=== PATIENT | male | born 1940 | race Caucasian/White ===

== ENCOUNTER 2017-03-03 20:45 | Emergency (ER) | payer MEDICARE, OTHER ==
[~2017-03-03] VITALS: Ht 177.8 cm; Wt 76.7 kg
[~2017-03-03 20:45] MED LIST: ASPI-586 PO; ATRV10T PO; DICL100T PO
[2017-03-03 21:13] LABS: BASOPHILS # (AUTO) 0.1 10^3/uL (0.0-0.1); BASOPHILS % (AUTO) 1 % (0-10); EOSINOPHILS # (AUTO) 0.3 10^3/uL (0.0-0.3); EOSINOPHILS % (AUTO) 3 % (0-10); LYMPHOCYTES % (AUTO) 20 % (12-44); MEAN CORPUSCULAR HEMOGLOBIN 33 PG (25-34); MEAN CORPUSCULAR HGB CONC 34 G/DL (32-36); MEAN CORPUSCULAR VOLUME 97 FL (80-99); MEAN PLATELET VOLUME 10.1 FL (7.4-10.4); MONOCYTES # (AUTO) 1.2 X 10^3 (0.0-1.0); MONOCYTES % (AUTO) 12 % (0-12); NEUTROPHILS # (AUTO) 6.5 X 10^3 (1.8-7.8); NEUTROPHILS % (AUTO) 64 % (42-75); PLATELET COUNT 229 10^3/uL (130-400); WHITE BLOOD COUNT 10.1 10^3/uL (4.3-11.0)
--- NOTE | 2017-03-03 21:13 | ED Chest Pain ---
General Chief Complaint: Chest Pain Stated Complaint: TIGHTNESS IN CHEST Nursing Triage Note: c/o sternal chest pain, denies soa, nausea Nursing Sepsis Screen: No Definite Risk Source: patient, spouse History of Present Illness Time seen by provider: 21:00 Initial Comments Patient presents to ER with chief complaint of tightness in his chest across his shoulders for the past 2-1/2 hours after he was swimming. He swims 3 times a week and has never had this problem before. He does not remember injuring himself. He does mild shortness of breath no nausea paresthesias tingling numbness. He has no thyroid or blood pressure problems. He is on a statin for hypercholesterolemia. He has no previous coronary history. He does not smoke or use tobacco products, drink or use drugs. His father had a heart attack in his mid 80s. He is not had any coronary testing, stress testing or workup for aneurysm. Allergies and Home Medications Allergies Coded Allergies: Penicillins (Verified Allergy, Unknown, 07/12/16) clarithromycin (Verified Allergy, Unknown, 07/12/16) Home Medications Aspirin 81 Mg Tablet.dr, 81 MG PO DAILY, (Reported) Atorvastatin Calcium 10 Mg Tablet, 10 MG PO DAILY, (Reported) Diclofenac Sodium 100 Mg Tab.er.24h, 100 MG PO DAILY PRN for arthritis pain, ( Reported) Review of Systems Constitutional: No chills, No diaphoresis, No fever, No malaise EENTM: No Blurred Vision, No Double Vision Respiratory: Denies Cough, Denies Shortness of Air Cardiovascular: See HPI, Chest Pain (tightness), Denies Edema, Denies Irregular Heart Rate, Denies Palpitations, Denies Syncope Gastrointestinal: Denies Abdominal Pain, Denies Diarrhea, Denies Nausea, Denies Vomiting Genitourinary: Denies Burning, Denies Discharge Musculoskeletal: No joint pain, No joint swelling Skin: No pruritus, No rash Psychiatric/Neurological: Denies Headache, Denies Numbness Past Wweftqz-Gcovum-Inurnx Hx Patient Social History Alcohol Use: Denies Use Recreational Drug Use: No Smoking Status: Never a Smoker Recent Foreign Travel: No Contact w/Someone Who Travel: No Recent Infectious Disease Expo: No Recent Hopitalizations: No Immunizations Up To Date Date of Pneumonia Vaccine: May 31, 2016 Date of Influenza Vaccine: May 31, 2016 Seasonal Allergies Seasonal Allergies: No Surgeries HX Surgeries: Yes (melonama removed from face, cyst removed from wrist) Surgeries: Gallbladder Respiratory Hx Respiratory Disorders: No Cardiovascular Hx Cardiac Disorders: No Cardiac Disorders: High Cholesterol Neurological Hx Neurological Disorders: No Genitourinary Hx Genitourinary Disorders: No Gastrointestinal Hx Gastrointestinal Disorders: No Gastrointestinal Disorders: Polyps Musculoskeletal Hx Musculoskeletal Disorders: Yes (MILD ARTHRITIS IN SHOULDERS) Musculoskeletal Disorders: Arthritis, Chronic Back Pain Endocrine Hx Endocrine Disorders: No HEENT HX ENT Disorders: Yes (cataracts removed) Cancer Hx Cancer: Yes Cancer: Melanoma Psychosocial Hx Psychiatric Problems: No Integumentary HX Skin/Integumentary Disorder: Yes (cyst on left wrist) Blood Transfusions Hx Blood Disorders: No Physical Exam Vital Signs Vital Sign - Last 12Hours 03/03/17 20:55 Temp 98.2 Pulse 66 Resp 19 B/P (MAP) 133/80 Pulse Ox 98 O2 Delivery Room Air Capillary Refill : Less Than 3 Seconds General Appearance: No Apparent Distress, WD/WN, Anxious HEENT: PERRL/EOMI, Pharynx Normal Respiratory: Chest Non Tender, Lungs Clear, Normal Breath Sounds, No Accessory Muscle Use Cardiovascular: Regular Rate, Rhythm, No Edema Gastrointestinal: Normal Bowel Sounds, Non Tender, Soft Extremity: Normal Capillary Refill, Normal Inspection, No Pedal Edema Neurologic/Psychiatric: Alert, Oriented x3 Skin: Normal Color, Warm/Dry Progress/Results/Core Measures Results/Orders Lab Results Laboratory Tests Test 03/03/17 21:00 03/03/17 23:05 Range/Units White Blood Count 10.1 4.3-11.0 10^3/uL Red Blood Count 4.20 L 4.35-5.85 10^6/uL Hemoglobin 13.8 13.3-17.7 G/DL Hematocrit 41 40-54 % Mean Corpuscular Volume 97 80-99 FL Mean Corpuscular Hemoglobin 33 25-34 PG Mean Corpuscular Hemoglobin Concent 34 32-36 G/DL Red Cell Distribution Width 12.0 10.0-14.5 % Platelet Count 229 130-400 10^3/uL Mean Platelet Volume 10.1 7.4-10.4 FL Neutrophils (%) (Auto) 64 42-75 % Lymphocytes (%) (Auto) 20 12-44 % Monocytes (%) (Auto) 12 0-12 % Eosinophils (%) (Auto) 3 0-10 % Basophils (%) (Auto) 1 0-10 % Neutrophils # (Auto) 6.5 1.8-7.8 X 10^3 Lymphocytes # (Auto) 2.0 1.0-4.0 X 10^3 Monocytes # (Auto) 1.2 H 0.0-1.0 X 10^3 Eosinophils # (Auto) 0.3 0.0-0.3 10^3/uL Basophils # (Auto) 0.1 0.0-0.1 10^3/uL Prothrombin Time 13.0 12.2-14.7 SEC INR Comment 1.0 0.8-1.4 Activated Partial Thromboplast Time 31 24-35 SEC Sodium Level 139 135-145 MMOL/L Potassium Level 4.3 3.6-5.0 MMOL/L Chloride Level 105 98-107 MMOL/L Carbon Dioxide Level 20 L 21-32 MMOL/L Anion Gap 14 5-14 MMOL/L Blood Urea Nitrogen 17 7-18 MG/DL Creatinine 0.83 0.60-1.30 MG/DL Estimat Glomerular Filtration Rate > 60 BUN/Creatinine Ratio 20 Glucose Level 93 70-105 MG/DL Calcium Level 9.1 8.5-10.1 MG/DL Magnesium Level 2.5 H 1.8-2.4 MG/DL Total Bilirubin 0.4 0.1-1.0 MG/DL Aspartate Amino Transf (AST/SGOT) 27 5-34 U/L Alanine Aminotransferase (ALT/SGPT) 20 0-55 U/L Alkaline Phosphatase 52 40-136 U/L Myoglobin 101.4 H 10.0-92.0 NG/ML Troponin I < 0.30 < 0.30 <0.30 NG/ML Total Protein 6.4 6.4-8.2 GM/DL Albumin 3.9 3.2-4.5 GM/DL My Orders Orders - CHUYITA ROGERS Troponin I (03/03/17 23:08) Medications Given in ED Current Medications Medications Dose Ordered Sig/Camila Route Start Time Stop Time Status Last Admin Dose Admin Aspirin 324 mg ONCE ONCE PO 03/03/17 21:15 03/03/17 21:16 DC 03/03/17 21:27 324 MG Vital Signs/I&O Vital Sign - Last 12Hours 03/03/17 03/03/17 20:55 20:55 Temp 98.2 Pulse 66 Resp 19 B/P (MAP) 133/80 Pulse Ox 98 O2 Delivery Room Air Blood Pressure Mean: 97 Progress Note #1: Time: 21:58 Progress Note Muscular skeletal versus cardiac origin. EKG unremarkable and so we'll get some lab and a chest x-ray. Progress Note #2: Time: 00:19 Progress Note Delta T was both normal okay to follow-up with Dr. Helms next week. ECG Initial ECG Impression Date: Mar 03, 2017 Initial ECG Impression Time: 20:56 Initial ECG Rate: 64 Initial ECG Rhythm: Normal Sinus Initial ECG Intervals: Normal Initial ECG Impression: Nonspecific Changes Initial ECG Comparisson: No Previous ECG Available Comment No ST wave elevation or depression Diagnostic Imaging Diagonstic Imaging: Xray Plain Films/CT/US/NM/MRI: chest Comments NAME: KANWAL ALBARRAN MED REC#: [id number] PHYSICIAN: ELIZABETH DARDEN APRN CC: ELIZABETH DARDEN APRN; LEORA RAM MD Page 1 of 1 RADIOLOGY REPORT [facility]. [place], [place] CC: ELIZABETH DARDEN APRN; LEORA RAM MD Page 1 of 1 RADIOLOGY REPORT NAME: KANWAL ALBARRAN MED REC#: [id number] PT STATUS: REG ER : 1940 PHYSICIAN: ELIZABETH DARDEN APRN ADMIT DATE: 03/03/17/ER Signed Date of Exam: 03/03/17 CHEST 1 VIEW, AP/PA ONLY INDICATION: Chest tightness Upright portable chest shows normal heart size and vascularity. The lungs are clear. There is no effusion or pneumothorax. There is no bony abnormality. IMPRESSION: Normal chest. Dictated by: Dictated on workstation # [id number] Dict: 03/03/172126 Trans: 03/03/172151 Interpreted by: LEORA RAM MD Electronically signed by: LEORA RAM MD 03/03/172151 Reviewed: Reviewed by Me Departure Impression Impression: Primary Impression: Chest pain Qualified Codes: R07.9 - Chest pain, unspecified Disposition: 01 HOME, SELF-CARE Condition: Stable Departure-Patient Inst. Decision time for Depature: 00:20 Referrals: JACK HELMS MD (PCP) Primary Care Physician Patient Instructions: Chest Pain That Is Not Caused by the Heart (DC) Add. Discharge Instructions: Plan on following up Monday by calling Dr. Helms's office to be seen within the next week. Return to the ER if you're having new chest pain nausea shortness of breath or other worrisome symptoms. All discharge instructions reviewed with patient and/or family. Voiced understanding. Copy Copies To 1: JACK HELMS MD, TITUS J Mar 03, 2017 21:13
[2017-03-03] MEDS: ASPIRIN 81 MG CHEW (CHILDREN'S ASA) PO ONE (21:27)
--- NOTE | 2017-03-03 21:33 | Diagnostic Imaging Report ---
INDICATION: Chest tightness Upright portable chest shows normal heart size and vascularity. The lungs are clear. There is no effusion or pneumothorax. There is no bony abnormality. IMPRESSION: Normal chest. Dictated by: Dictated on workstation # [id number]
[2017-03-03 21:34] LABS: ALANINE AMINOTRANSFERASE 20 U/L (0-55); ALBUMIN 3.9 GM/DL (3.2-4.5); ANION GAP 14 MMOL/L (5-14); ASPARTATE AMINO TRANSFERASE 27 U/L (5-34); BILIRUBIN,TOTAL 0.4 MG/DL (0.1-1.0); BLOOD UREA NITROGEN 17 MG/DL (7-18); BUN/CREATININE RATIO 20; CALCIUM 9.1 MG/DL (8.5-10.1); CARBON DIOXIDE 20 MMOL/L (21-32); CHLORIDE 105 MMOL/L (98-107); CREATININE SERUM 0.83 MG/DL (0.60-1.30); GFR ESTIMATED > 60; GLUCOSE 93 MG/DL (70-105); MAGNESIUM 2.5 MG/DL (1.8-2.4); POTASSIUM 4.3 MMOL/L (3.6-5.0); SODIUM 139 MMOL/L (135-145); TOTAL PROTEIN 6.4 GM/DL (6.4-8.2)
[2017-03-03 21:35] LABS: MYOGLOBIN SERUM 101.4 NG/ML (10.0-92.0)
[2017-03-04 00:26] VITALS: BP 103/60
== END 2017-03-04 00:30 | disposition home or self-care (01) ==
LOC: EDUNIT# 20:45 → ER 20:46
DX: R07.89 Other chest pain (principal); M19.011 Primary osteoarthritis, right shoulder; M19.012 Primary osteoarthritis, left shoulder; E78.00 Pure hypercholesterolemia, unspecified; Z85.820 Personal history of malignant melanoma of skin; Z79.82 Long term (current) use of aspirin
CPT/HCPCS: 36415; 71010; 80053; 83735; 83874; 84484; 85025; 85027; 85610; 85730; 93041

== ENCOUNTER 2017-07-04 10:54 | Emergency (ER) | payer MEDICARE, OTHER ==
[~2017-07-04] VITALS: Ht 172.7 cm; Wt 79.4 kg
--- OUTSIDE RECORDS SUMMARY | 2017-07-04 11:00 | XMS REPORT ---
Author IMANI Angeles Organization [employer] Address Unknown Phone Unavailable Care Team Providers Care Labor Relations Representative Name Role Phone IMANI CAMPBELL CP Unavailable Allergies No Known Allergies Problems Problem Type Condition Code Onset Dates Condition Status Assessment Encounter for immunization Z23 Active Problem Need for prophylactic vaccination and inoculation, Influenza V04.81 Active Medications No Known Medications Procedures Procedure Coding System Code Date SINGLE IMMUNIZATION ADMIN CPT-4 44043 May 28, 2016 PPV23 (PNEUMOVAX) CPT-4 71512 May 28, 2016 Results No Known Results Immunizations Vaccine Administration Date PPV23 (PNEUMOVAX) May 28, 2016 FLUARIX QUAD P-FREE 3 AND UP .50 2015May 28, 2016 Summary Purpose [employer] Submission
--- OUTSIDE RECORDS SUMMARY | 2017-07-04 11:00 | XMS REPORT | Continuity of Care Document ---
Author Author [facility] Address Unknown Phone Unavailable Allergies Medications Problems Date Dx Coded Attending Type Code Diagnosis Diagnosed By 10/03/2008 IMANI CAMPBELL DO V05.8 GARDASIL, SHINGLES, OTHER SPECIFIED DISEASE 05/21/2013 IMANI CAMPBELL DO V04.81 FLU SHOT Procedures Code Description Performed By Performed On G0008 FLU ADMINISTRATION (MEDICARE ONLY) 05/21/2013 Results Encounters ACCT No. Visit Date/Time Discharge Status Pt. Type Provider Facility Loc./Unit Complaint [id number] 05/21/2013 14:18:00 05/21/2013 23: 59:59 CLS Outpatient IMANI CAMPBELL DO
[2017-07-04 11:17] LABS: BASOPHILS # (AUTO) 0.1 10^3/uL (0.0-0.1); BASOPHILS % (AUTO) 1 % (0-10); EOSINOPHILS # (AUTO) 0.2 10^3/uL (0.0-0.3); EOSINOPHILS % (AUTO) 4 % (0-10); LYMPHOCYTES # (AUTO) 1.6 X 10^3 (1.0-4.0); LYMPHOCYTES % (AUTO) 25 % (12-44); MEAN CORPUSCULAR HEMOGLOBIN 33 PG (25-34); MEAN CORPUSCULAR HGB CONC 34 G/DL (32-36); MEAN CORPUSCULAR VOLUME 96 FL (80-99); MEAN PLATELET VOLUME 9.9 FL (7.4-10.4); MONOCYTES # (AUTO) 0.9 X 10^3 (0.0-1.0); MONOCYTES % (AUTO) 14 % (0-12); NEUTROPHILS # (AUTO) 3.6 X 10^3 (1.8-7.8); NEUTROPHILS % (AUTO) 56 % (42-75); PLATELET COUNT 218 10^3/uL (130-400); RED BLOOD COUNT 4.37 10^6/uL (4.35-5.85); RED CELL DISTRIBUTION WIDTH 11.8 % (10.0-14.5); WHITE BLOOD COUNT 6.4 10^3/uL (4.3-11.0)
[2017-07-04] MEDS ORDERED: NS IV 500 ML 500 ML IV ONE (11:27)
--- NOTE | 2017-07-04 11:28 | ED General ---
General Chief Complaint: Dizziness/Syncope Stated Complaint: LIGHT-HEADED,DIZZY,LOW PULSE RATE Source of Information: Patient Exam Limitations: No Limitations History of Present Illness Time Seen by Provider: 11:20 Initial Comments Here from his primary care doctor's office with report of dizziness and a heart rate. His primary care doctor was concerned about the low heart rate. Patient admits that he has had 2 days of diarrhea and was quite severe last night. Also complains of some fullness in his ears. Denies nausea or vomiting and states the diarrhea has stopped now. Denies chest pain or weakness. Normally swims about three quarters of a mile a day and was off for about a week and started back up. He reports he was a little bit more short of breath than typical with that although he was have an diarrheal illness. Timing/Duration: 1-2 Days Severity: Mild Associated Systoms: No Chest Pain, No Cough, No Fever/Chills, No Nausea/ Vomiting, Shortness of Air, Other (dizziness) Allergies and Home Medications Allergies Coded Allergies: Penicillins (Verified Allergy, Unknown, 07/12/16) clarithromycin (Verified Allergy, Unknown, 07/12/16) Home Medications Aspirin 81 Mg Tablet.dr, 81 MG PO DAILY, (Reported) Atorvastatin Calcium 10 Mg Tablet, 10 MG PO DAILY, (Reported) Diclofenac Sodium 100 Mg Tab.er.24h, 100 MG PO DAILY PRN for arthritis pain, ( Reported) Constitutional: see HPI, No chills, No fever (6636) EENTM: see HPI, nose congestion Respiratory: see HPI Cardiovascular: no symptoms reported Gastrointestinal: see HPI, No abdominal pain, diarrhea, No nausea, No vomiting Genitourinary: no symptoms reported Skin: no symptoms reported Psychiatric/Neurological: See HPI, Other (dizziness) Hematologic/Lymphatic: No Symptoms Reported All Other Systems Reviewed Negative Unless Noted: Yes Past Zdeqvjw-Cggjbq-Pqptes Hx Patient Social History Alcohol Use: Occasionally Uses Number of Drinks Today: HH Alcohol Beverage of Choice: Wine Recreational Drug Use: No Smoking Status: Never a Smoker Recent Foreign Travel: No Contact w/Someone Who Travel: No Recent Hopitalizations: No Immunizations Up To Date Date of Pneumonia Vaccine: May 31, 2016 Date of Influenza Vaccine: May 31, 2016 Seasonal Allergies Seasonal Allergies: No Surgeries History of Surgeries: Yes (melonama removed from face, cyst removed from wrist) Surgeries: Gallbladder Respiratory History of Respiratory Disorde: No Cardiovascular History of Cardiac Disorders: Yes Cardiac Disorders: High Cholesterol Neurological History of Neurological Disord: No Gastrointestinal History of Gastrointestinal Di: No Gastrointestinal Disorders: Polyps Musculoskeletal History of Musculoskeletal Dis: Yes (MILD ARTHRITIS IN SHOULDERS) Musculoskeletal Disorders: Arthritis, Chronic Back Pain Endocrine History of Endocrine Disorders: No Cancer History of Cancer: Yes Cancer: Melanoma Psychosocial History of Psychiatric Problem: No Integumentary History of Skin or Integumenta: Yes (cyst on left wrist) Blood Transfusions History of Blood Disorders: No Reviewed Nursing Assessment Reviewed/Agree w Nursing PMH: Yes Family Medical History Significant Family History: No Pertinent Family Hx Physical Exam Vital Signs Vital Sign - Last 12Hours 07/04/17 10:54 Temp 97.4 Pulse 45 Resp 18 B/P (MAP) 164/77 (106) Capillary Refill : General Appearance: No Apparent Distress, WD/WN HEENT: PERRL/EOMI, Pharynx Normal Neck: Non Tender, Supple Respiratory: Lungs Clear, Normal Breath Sounds Cardiovascular: No Murmur, Bradycardia Gastrointestinal: Non Tender, Soft Back: Normal Inspection, No CVA Tenderness, No Vertebral Tenderness Extremity: Normal Range of Motion, Non Tender Neurologic/Psychiatric: Alert, Oriented x3 Skin: Normal Color, Warm/Dry Progress/Results/Core Measures Suspected Sepsis SIRS Temperature: Pulse: Respiratory Rate: Laboratory Tests 07/04/17 11:05: White Blood Count 6.4 Blood Pressure / Mean: Laboratory Tests 07/04/17 11:05: Creatinine 0.88, Platelet Count 218, Total Bilirubin 0.6 Results/Orders Lab Results Laboratory Tests Test 07/04/17 11:05 07/04/17 12:11 Range/Units White Blood Count 6.4 4.3-11.0 10^3/uL Red Blood Count 4.37 4.35-5.85 10^6/uL Hemoglobin 14.5 13.3-17.7 G/DL Hematocrit 42 40-54 % Mean Corpuscular Volume 96 80-99 FL Mean Corpuscular Hemoglobin 33 25-34 PG Mean Corpuscular Hemoglobin Concent 34 32-36 G/DL Red Cell Distribution Width 11.8 10.0-14.5 % Platelet Count 218 130-400 10^3/uL Mean Platelet Volume 9.9 7.4-10.4 FL Neutrophils (%) (Auto) 56 42-75 % Lymphocytes (%) (Auto) 25 12-44 % Monocytes (%) (Auto) 14 H 0-12 % Eosinophils (%) (Auto) 4 0-10 % Basophils (%) (Auto) 1 0-10 % Neutrophils # (Auto) 3.6 1.8-7.8 X 10^3 Lymphocytes # (Auto) 1.6 1.0-4.0 X 10^3 Monocytes # (Auto) 0.9 0.0-1.0 X 10^3 Eosinophils # (Auto) 0.2 0.0-0.3 10^3/uL Basophils # (Auto) 0.1 0.0-0.1 10^3/uL Sodium Level 139 135-145 MMOL/L Potassium Level 4.5 3.6-5.0 MMOL/L Chloride Level 102 98-107 MMOL/L Carbon Dioxide Level 30 21-32 MMOL/L Anion Gap 7 5-14 MMOL/L Blood Urea Nitrogen 23 H 7-18 MG/DL Creatinine 0.88 0.60-1.30 MG/DL Estimat Glomerular Filtration Rate > 60 BUN/Creatinine Ratio 26 Glucose Level 72 70-105 MG/DL Calcium Level 9.7 8.5-10.1 MG/DL Magnesium Level 2.2 1.8-2.4 MG/DL Total Bilirubin 0.6 0.1-1.0 MG/DL Aspartate Amino Transf (AST/SGOT) 31 5-34 U/L Alanine Aminotransferase (ALT/SGPT) 29 0-55 U/L Alkaline Phosphatase 48 40-136 U/L Troponin I < 0.30 <0.30 NG/ML Total Protein 7.3 6.4-8.2 GM/DL Albumin 4.2 3.2-4.5 GM/DL Thyroid Stimulating Hormone (TSH) 3.59 0.35-4.94 UIU/ML Urine Color YELLOW Urine Clarity CLEAR Urine pH 7 5-9 Urine Specific [place] 1.005 L 1.016-1.022 Urine Protein NEGATIVE NEGATIVE Urine Glucose (UA) NEGATIVE NEGATIVE Urine Ketones NEGATIVE NEGATIVE Urine Nitrite NEGATIVE NEGATIVE Urine Bilirubin NEGATIVE NEGATIVE Urine Urobilinogen NORMAL NORMAL MG/DL Urine Leukocyte Esterase NEGATIVE NEGATIVE Urine RBC (Auto) NEGATIVE NEGATIVE Urine RBC NONE /HPF Urine WBC NONE /HPF Urine Squamous Epithelial Cells NONE /HPF Urine Crystals NONE /LPF Urine Bacteria NEGATIVE /HPF Urine Casts NONE /LPF Urine Mucus NEGATIVE /LPF Urine Culture Indicated NO My Orders Orders - ESPERANZA VALDERRAMA MD Cbc With Automated Diff (07/04/17 11:08) Comprehensive Metabolic Panel (07/04/17 11:08) Magnesium (07/04/17 11:08) Thyroid Stimulating Hormone (07/04/17 11:08) Troponin I (07/04/17 11:08) Saline Lock/Iv-Start (07/04/17 11:08) Ekg Tracing (07/04/17 11:08) Monitor-Rhythm Ecg Trace Only (07/04/17 11:08) Chest Pa/Lat (2 View) (07/04/17 11:08) Ns Iv 500 Ml (Sodium Chloride 0.9%) (07/04/17 11:27) Ua Culture If Indicated (07/04/17 12:05) Medications Given in ED Current Medications Medications Dose Ordered Sig/Camila Route Start Time Stop Time Status Last Admin Dose Admin Sodium Chloride 500 ml @ 0 mls/hr Q0M ONCE IV 07/04/17 11:27 07/04/17 11:28 DC 07/04/17 12:12 500 MLS/HR Vital Signs/I&O Vital Sign - Last 12Hours 07/04/17 10:54 Temp 97.4 Pulse 45 Resp 18 B/P (MAP) 164/77 (106) Capillary Refill : Progress Note : Progress Note Seen and evaluated. IV, labs, normal saline 500 mL bolus, chest x-ray and EKG ordered. We will get UA for some complaints of low back pain. 1335: Labs and UA are reviewed and no significant findings. Discharged home with return precautions. Patient verbalize understanding instructions and agreement with plan. He will follow up with Dr. Helms and cardiology as needed. ECG Initial ECG Impression Date: Jul 04, 2017 Initial ECG Impression Time: 11:10 Initial ECG Rate: 46 Initial ECG Rhythm: S.Sd Comment Sinus bradycardia with right bundle branch block. No evidence of ST elevation [place]. Overall similar to previous of 03/03/17. Interpreted by me. Diagnostic Imaging Diagonstic Imaging: Xray Plain Films/CT/US/NM/MRI: chest Comments [facility] [place] [place] NAME: KANWAL ALBARRAN [facility] REC#: [id number] PT STATUS: REG ER : 1940 PHYSICIAN: ESPERANZA VALDERRAMA MD ADMIT DATE: 07/04/17/ER Draft Date of Exam:07/04/17 CHEST PA/LAT (2 VIEW) EXAMINATION: PA and lateral views of the chest. INDICATION: Dizziness and lightheadedness. FINDINGS: The lungs are clear. The heart size is normal. There is no effusion or pneumothorax. The mediastinum and nilesh appear unremarkable. IMPRESSION: Unremarkable exam. Dictated on workstation # [id number] Dict: 07/04/17 1144 Trans: 07/04/17 1149 [id number] Interpreted by: SHANA BANUELOS MD Electronically signed by: Departure Impression Impression: Primary Impression: Dizziness Additional Impressions: Diarrhea Qualified Codes: R19.7 - Diarrhea, unspecified Bradycardia Disposition: 01 HOME, SELF-CARE Condition: Improved Departure-Patient Inst. Decision time for Depature: 13:37 Referrals: JACK HELMS MD (PCP) Primary Care Physician Doron LEDBETTER MD Patient Instructions: Dizziness, Nonvertigo, (DC), Viral Upper Respiratory Infection, Adult (DC) Add. Discharge Instructions: All discharge instructions reviewed with patient and/or family. Voiced understanding. Drink plenty fluids and eat a normal diet. Follow-up with your Dr. in a few days for recheck. You should follow-up with the director of direct marketing listed or director of direct marketing of your choice within a week for recheck and further evaluation. You may use Afrin nasal spray or the generic, 12 hour relief, 2 sprays to each nostril twice daily for 3 days only and then stop. Do not use for more than 3 days. Return for worse pain, fever, vomiting, weakness, breathing problems or other concerns as needed. Copy Copies To 1: JACK HELMS MD Copies To 2: Doron LEDBETTER MD, TIMOTHY D MD Jul 04, 2017 11:27
[2017-07-04 11:37] LABS: ALANINE AMINOTRANSFERASE 29 U/L (0-55); ALBUMIN 4.2 GM/DL (3.2-4.5); ANION GAP 7 MMOL/L (5-14); ASPARTATE AMINO TRANSFERASE 31 U/L (5-34); BILIRUBIN,TOTAL 0.6 MG/DL (0.1-1.0); BLOOD UREA NITROGEN 23 MG/DL (7-18); BUN/CREATININE RATIO 26; CALCIUM 9.7 MG/DL (8.5-10.1); CARBON DIOXIDE 30 MMOL/L (21-32); CHLORIDE 102 MMOL/L (98-107); CREATININE SERUM 0.88 MG/DL (0.60-1.30); GFR ESTIMATED > 60; GLUCOSE 72 MG/DL (70-105); MAGNESIUM 2.2 MG/DL (1.8-2.4); POTASSIUM 4.5 MMOL/L (3.6-5.0); SODIUM 139 MMOL/L (135-145); TOTAL PROTEIN 7.3 GM/DL (6.4-8.2)
--- NOTE | 2017-07-04 11:50 | Diagnostic Imaging Report ---
EXAMINATION: PA and lateral views of the chest. INDICATION: Dizziness and lightheadedness. FINDINGS: The lungs are clear. The heart size is normal. There is no effusion or pneumothorax. The mediastinum and nilesh appear unremarkable. IMPRESSION: Unremarkable exam. Dictated by: Dictated on workstation # [id number]
[2017-07-04 12:00] LABS: THYROID STIMULATING HORMONE 3.59 UIU/ML (0.35-4.94); TROPONIN I < 0.30 NG/ML (<0.30)
[2017-07-04 12:18] LABS: BILIRUBIN,URINE NEGATIVE (NEGATIVE); KETONES,URINE NEGATIVE (NEGATIVE); LEUKOCYTE ESTERASE ,URINE NEGATIVE (NEGATIVE); NITRITE,URINE NEGATIVE (NEGATIVE); PH,URINE 7 (5-9); PROTEIN,URINE NEGATIVE (NEGATIVE); UROBILINOGEN,URINE NORMAL (NORMAL)
[2017-07-04 13:51] VITALS: BP 166/83
== END 2017-07-04 13:52 | disposition home or self-care (01) ==
LOC: EDUNIT# 10:54 → ER 10:56
DX: R42 Dizziness and giddiness (principal); R19.7 Diarrhea, unspecified; R00.1 Bradycardia, unspecified; E78.00 Pure hypercholesterolemia, unspecified; M19.011 Primary osteoarthritis, right shoulder; M19.012 Primary osteoarthritis, left shoulder; Z86.010 Personal history of colon polyps; Z85.820 Personal history of malignant melanoma of skin
CPT/HCPCS: 36415; 71020; 80053; 81000; 83735; 84443; 84484; 85025; 93041

== ENCOUNTER 2017-07-18 08:16 | Outpatient (RCR) | payer MEDICARE, OTHER | END 2017-10-16 | disposition home or self-care (01) | LOC: CARD 08:16 | PROVIDERS: ATTEND Internal Medicine Interventional Cardiology | DX: E78.5 Hyperlipidemia, unspecified (principal); R42 Dizziness and giddiness; I45.10 Unspecified right bundle-branch block; R06.02 Shortness of breath; R00.1 Bradycardia, unspecified | CPT/HCPCS: 93225; 93226 ==

== ENCOUNTER 2017-08-14 08:25 | Outpatient (RCR) | payer MEDICARE, OTHER | END 2017-10-18 | disposition home or self-care (01) | LOC: CARD 08:25 | PROVIDERS: ATTEND Internal Medicine Interventional Cardiology | DX: R42 Dizziness and giddiness (principal); E78.5 Hyperlipidemia, unspecified; I45.10 Unspecified right bundle-branch block; R06.02 Shortness of breath; R00.1 Bradycardia, unspecified | CPT/HCPCS: 93270 ==

== ENCOUNTER → 2017-08-14 | Outpatient (CLI) | payer MEDICARE, OTHER | LOC: CARD 09:26 | PROVIDERS: ATTEND Internal Medicine Interventional Cardiology | DX: R42 Dizziness and giddiness (principal); E78.5 Hyperlipidemia, unspecified; I45.10 Unspecified right bundle-branch block; R06.02 Shortness of breath; R00.1 Bradycardia, unspecified | CPT/HCPCS: 93306 ==

== ENCOUNTER → 2017-09-27 | Outpatient (CLI) | payer MEDICARE, OTHER ==
--- NOTE | 2017-09-27 16:51 | Diagnostic Imaging Report ---
INDICATION: Recent injury. Pain. COMPARISON: None. FINDINGS: Three radiographic views of the left hand were obtained. There is no radiographic evidence of acute fracture or dislocation. Moderate scattered degenerative changes are noted, particularly involving the first carpometacarpal joint space as well as the distal interphalangeal joints. Otherwise, joint spaces are preserved. No unexpected radiopaque foreign bodies are seen. Soft tissue structures are unremarkable. IMPRESSION: 1. No acute fracture or dislocation of the left hand. 2. 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 Dictated by: Dictated on workstation # [id number]
== END ==
LOC: RAD 15:33
PROVIDERS: ATTEND Family Medicine
DX: S69.92XA Unspecified injury of left wrist, hand and finger(s), initial encounter (principal); M19.042 Primary osteoarthritis, left hand
CPT/HCPCS: 73130

== ENCOUNTER 2018-03-01 07:57 | Day surgery (SDC) | payer MEDICARE, OTHER ==
[~2018-03-01] VITALS: Ht 175.3 cm; Wt 79.8 kg
[2018-03-01] VITALS (13 sets, daily range): BP systolic 104–148; BP diastolic 65–88
[2018-03-01] MEDS ORDERED: NS IV 1000 ML 1,000 ML ONE (08:14)
[2018-03-01] MEDS ORDERED: LIDOCAINE 1% INJ 20 ML 20 ML VIAL ONE (08:14)
[2018-03-01] MEDS ORDERED: HEParin (CATH LAB) 1,000 ML IV ONE (08:14)
[2018-03-01] MEDS ORDERED: NS IV 1000 ML 1,000 ML IV ONE (08:18)
[2018-03-01] MEDS ORDERED: VANCOMYCIN INJECTION 1,000 MG in NS (IVPB) 250 ML IV ONE (08:30)
[2018-03-01] MEDS ORDERED: BACITRACIN INJECTION 50,000 UNIT, SODIUM CHLORIDE 0.9% IRRIGATIO 500 ML IR ONE ×2 (08:30)
[2018-03-01 08:50] LABS: HEMOGLOBIN 13.8 G/DL (13.3-17.7); MEAN PLATELET VOLUME 9.9 FL (7.4-10.4); RED BLOOD COUNT 4.13 10^6/uL (4.35-5.85); RED CELL DISTRIBUTION WIDTH 12.3 % (10.0-14.5); WHITE BLOOD COUNT 6.4 10^3/uL (4.3-11.0)
[2018-03-01] MEDS ORDERED: MULT-35 PO (09:03)
[2018-03-01] MEDS ORDERED: DICL75TA2 PO (09:03)
[2018-03-01] MEDS ORDERED: ATOR10TA66 PO (09:03)
[2018-03-01] MEDS ORDERED: VITA1TAB17 PO (09:03)
[2018-03-01] MEDS ORDERED: CHOL10007 PO (09:04)
[2018-03-01] MEDS ORDERED: CYAN10006 PO (09:04)
[2018-03-01 09:10] LABS: ALANINE AMINOTRANSFERASE 22 U/L (0-55); ALBUMIN 3.9 GM/DL (3.2-4.5); ALKALINE PHOSPHATASE 51 U/L (40-136); BILIRUBIN,TOTAL 0.5 MG/DL (0.1-1.0); BUN/CREATININE RATIO 25; CALCIUM 9.3 MG/DL (8.5-10.1); CARBON DIOXIDE 27 MMOL/L (21-32); CHLORIDE 107 MMOL/L (98-107); CREATININE SERUM 0.89 MG/DL (0.60-1.30); GFR ESTIMATED > 60; GLUCOSE 93 MG/DL (70-105); POTASSIUM 4.5 MMOL/L (3.6-5.0); SODIUM 140 MMOL/L (135-145); TOTAL PROTEIN 6.3 GM/DL (6.4-8.2)
[2018-03-01 09:17] LABS: PROTHROMBIN TIME PATIENT 13.6 SEC (12.2-14.7)
[2018-03-01] MEDS ORDERED: fentaNYL INJECTION 100 MCG/2 ML AMP ONE ×2 (09:27→10:15)
[2018-03-01] MEDS ORDERED: MIDAZOLAM 5 MG/5 ML (VERSED) VIAL ONE ×2 (09:27→10:15)
[2018-03-01] MEDS ORDERED: NORMAL SALINE 250 ML ONE (09:47)
[2018-03-01] MEDS ORDERED: VANCOMYCIN 1000 MG/VIAL ONE (09:47)
[2018-03-01] MEDS ORDERED: NEO/POLY/BAC (NEOSPORIN) OINT 15 GM TUBE ONE (11:10)
[2018-03-01] MEDS ORDERED: NS IV 1000 ML 1,000 ML IV SCH (11:28)
[2018-03-01] MEDS ORDERED: PATIENT MAY USE OWN MEDS, ALL PO SCH (11:30)
--- NOTE | 2018-03-01 11:31 | Cardiac Procedure Note-CS/ASA ---
Pre-Procedure Note Pre-Op Procedure Note H&P Reviewed The H&P was reviewed, patient examined and no changes noted. Date H&P Reviewed: Mar 01, 2018 Time H&P Reviewed: 09:30 Conscious Sedation Pre-Proced Time Reviewed: 09:30 ASA Class: 3 Airway Mallampati Classification: ([place] appropriate class) I. II. III, IV Lungs Heart ASA score ASA 1: a normal healthy patient ASA 2: a patient with a mild systemic disease (mid diabetes, controlled hypertension, obesity ASA 3: a patient with a severe systemic disease that limits activity (angina , COPD, prior Myocardial infarction) ASA 4: a patient with an incapacitating disease that is a constant threat to life (CHF, renal failure) ASA 5: a moribund patient not expected to survive 24 hrs. (ruptured aneurysm) ASA 6: a declared brain patient whose organs are being harvested. For emergent operations, add the letter E after the classification Grade 1 Sedation Plan: Analgesia, Amnesia, Plan communicated to team members, Discussed options with patient/fam, Discussed risks with patient/fam Note The patient is an appropriate candidate to undergo the planned procedure, sedation, and anesthesia. The patient immediately re-assessed prior to indication. Doron LEDBETTER MD Mar 01, 2018 11:31 am
--- NOTE | 2018-03-01 11:35 | Permanent Pacemaker Implant ---
Dual Chamber Pacemaker Implant PROCEDURE PHYSICIAN: Jadiel Brown MD DUAL CHAMBER PACEMAKER IMPLANTATION: DATE OF PROCEDURE: 03/01/18 INDICATION: Symptomatic sinus node dysfunction. PREOPERATIVE DIAGNOSIS: Symptomatic sinus node dysfunction. POSTOPERATIVE DIAGNOSIS: Dual-chamber permanent pacemaker placed. HISTORY: This is a 77-year-old gentleman with chronotropic incompetence and severe symptomatic sinus node dysfunction with significant symptoms with bradycardia. Dual-chamber permanent pacemaker was recommended. PROCEDURE PERFORMED: 1. Dual-chamber permanent pacemaker implantation. 2. Fluoroscopy. 3. Central venous access. ANESTHESIA: Local anesthesia, conscious sedation. COMPLICATIONS: None. ESTIMATED BLOOD LOSS:20 mL. SPECIMENS: None. ORAL ANTICOAGULATION: None. FLUOROSCOPY TIME: 8 minutes. FLUOROSCOPY DOSE: 62 MGY. CONTRAST DOSE: 0. PROCEDURE DETAILS: The patient is a 77 male and after all of the patients questions were answered, the patient was brought to the EP Lab. The patient's left chest was prepped and draped in sterile fashion. A 2 inch horizontal incision was made 1 cm below the clavicle and dissection carried down to the pectoralis fascia. Using the modified Seldinger technique and under fluoroscopy guidance, the anterior aspect of the left axillary vein was accessed 2 times. The J wires were secured to the drapes with a mosquito clamp. A 6-Iranian sheath was introduced over one of the J-wires. The RV lead was then inserted. The RV lead was directed across the tricuspid valve to the apical septal portion of the right ventricle. The position was checked in MALTESE and STEWART views. The screw was deployed and the lead connected to the edi programmer analyst. Close sensing and pacing thresholds were obtained. Diaphragmatic pacing was ruled out. The lead was secured with 2-0 silk ties to the underlying muscle and fascia. Next, a 6-Iranian sheath was introduced through the remaining J-wire. An atrial lead was then introduced and guided to the level of the right appendage. The screw was deployed and the lead was connected to the interrogator. Good sensing and pacing thresholds were obtained. Diaphragmatic pacing was ruled out. The leads were secured with 2-0 silk ties to the underlying muscle and fascia. The leads were connected to the device in a hermetic fashion. The device and leads were placed in the pocket. Aggressive irrigation with saline solution was done. The device was secured to the underlying muscle and fascia with a 2-0 silk tie. interrogation of the device revealed good integrity of all the leads and good connections. The wound was then closed using 2 layers. The first layer was interrupted 2-0 absorbable Vicryl suture. The last layer was a single subcuticular layer with 4- 0 Vicryl suture. Half inch Steri-Strips and a small dressing were then applied to the wound. The patient tolerated the procedure well and was returned to the recovery room in stable condition with stable vital signs. DEVICE INFORMATION: Edora 8 DR-T [employer], reference number 250869, serial number [id number], PID 60. RA LEAD: Solia S 53, [employer], reference number 544651, serial number [id number]. RV LEAD: Solia S 60, [employer], reference number [id number], serial number [id number]. PER-OPERATIVE DEVICE INTERROGATION: RA sensing 8.6 mV, impedance 490 ohms, threshold 1.3 V at 0.5 ms. RV sensing 10.1 mV, impedance 656 ohms, threshold 1.4 towards at 0.5 ms. IMMEDIATE POSTOPERATIVE DEVICE INTERROGATION: RA sensing 4.9 mV, impedance 487 ohms, threshold 0.8 towards at 0.4 ms. RV sensing 7.5 mV, impedance 877 ohms, threshold 0.6 V at 0.4 ms. PLAN: The patient transferred to the ICU. We will continue with two more doses of IV antibiotics. We will check a chest x-ray and interrogate the device in the morning. The patient will continue on oral antibiotics for 5 days. Jadiel Brown MD, RS, CCDS Cardiac Electrophysiology Doron BROWN MD Mar 01, 2018 11:35 am
[2018-03-01] MEDS ORDERED: CLIN300C11 PO (11:37)
--- NOTE | 2018-03-01 11:38 | Discharge Inst-Post Device ---
Discharge Inst-Post Device Follow up/Plan Dr Brown in one week Heart Healthy Diet Do not lift arm on side of device placement above head for 4 weeks. Do not push and pull heavy objects for 4 weeks. Activity as tolerated. Leave dressing on until follow up at the office. Doron BROWN MD Mar 01, 2018 11:38 am
--- NOTE | 2018-03-01 11:44 | Diagnostic Imaging Report ---
Indication: Arrhythmia Portable chest 12:28 PM There is a left subclavian dual-chamber pacemaker with leads projecting over the right atrium and right ventricle. Heart size and pulmonary vascularity are normal. Lungs are clear. There are no effusions or pneumothoraces. Impression: No acute abnormalities in the chest. Dictated by: Dictated on workstation # [id number]
--- NOTE | 2018-03-01 19:30 | Diagnostic Imaging Report ---
CHEST 1 VIEW, AP/PA ONLY Indication: Status post pacemaker placement. Comparison: 03/01/2018 at 12:28 PM Findings: No focal airspace disease in the visualized lungs. Please note that the posterior lower lobes are poorly evaluated by portable radiography. No pleural effusion or pneumothorax. Stable cardiomegaly with left pectoral transvenous pacemaker. Impression: No pneumothorax post pacemaker placement. Dictated by: Dictated on workstation # [id number]
[2018-03-01] MEDS: VANCOMYCIN INJECTION 1,000 MG in NS (IVPB) 250 ML IV SCH (20:06)
[2018-03-01] MEDS ORDERED: DOCUSATE SODIUM 100 MG (COLACE) CAP PO ONE (22:33)
[2018-03-01] MEDS: DOCUSATE SODIUM 100 MG (COLACE) CAP PO SCH (22:46)
[2018-03-02] VITALS: BP 133/74
[2018-03-02 03:39] LABS: HEMOGLOBIN 13.9 G/DL (13.3-17.7); MEAN PLATELET VOLUME 9.9 FL (7.4-10.4); RED BLOOD COUNT 4.08 10^6/uL (4.35-5.85); WHITE BLOOD COUNT 9.4 10^3/uL (4.3-11.0)
[2018-03-02 04:00] VITALS: BP 124/72
[2018-03-02 04:03] LABS: ALANINE AMINOTRANSFERASE 23 U/L (0-55); ALBUMIN 3.7 GM/DL (3.2-4.5); ALKALINE PHOSPHATASE 48 U/L (40-136); BILIRUBIN,TOTAL 0.7 MG/DL (0.1-1.0); BUN/CREATININE RATIO 18; CALCIUM 8.9 MG/DL (8.5-10.1); CARBON DIOXIDE 24 MMOL/L (21-32); CHLORIDE 108 MMOL/L (98-107); CREATININE SERUM 0.77 MG/DL (0.60-1.30); GFR ESTIMATED > 60; GLUCOSE 94 MG/DL (70-105); POTASSIUM 4.1 MMOL/L (3.6-5.0); SODIUM 139 MMOL/L (135-145); TOTAL PROTEIN 5.8 GM/DL (6.4-8.2)
[2018-03-02 07:46] VITALS: BP 121/69
[2018-03-02] MEDS: DOCUSATE SODIUM 100 MG (COLACE) CAP PO SCH (07:59)
[2018-03-02] MEDS: VANCOMYCIN INJECTION 1,000 MG in NS (IVPB) 250 ML IV SCH (08:01)
[2018-03-02 10:25] VITALS: BP 129/72
[2018-03-02 10:40] VITALS: BP 129/72
--- NOTE | 2018-03-02 11:07 | Cardiology Discharge Summary ---
Diagnosis/Chief Complaint Date of Admission 03/01/2018 Date of Discharge 03/02/2018 Admission Diagnosis Severe symptomatic sinus node dysfunction Final/Discharge Diagnosis Dual chamber PPM implantation Chief Complaint/HPI Chief Complaint/HPI This is a 77 year old gentleman with history of severe symptomatic sinus node dysfunction. Dual chamber PPM is recommended. Discharge Summary Procedures Dual Chamber PPM implanted Discharge Physical Examination normal Hospital Course Unremarkable Pending Labs Laboratory Tests 03/02/18 03:31: White Blood Count 9.4, Red Blood Count 4.08, Hemoglobin 13.9, Hematocrit 39, Mean Corpuscular Volume 96, Mean Corpuscular Hemoglobin 34, Mean Corpuscular Hemoglobin Concent 36, Red Cell Distribution Width 12.0, Platelet Count 193, Mean Platelet Volume 9.9, Sodium Level 139, Potassium Level 4.1, Chloride Level 108, Carbon Dioxide Level 24, Anion Gap 7, Blood Urea Nitrogen 14, Creatinine 0.77, Estimat Glomerular Filtration Rate > 60, BUN/Creatinine Ratio 18, Glucose Level 94, Calcium Level 8.9, Total Bilirubin 0.7, Aspartate Amino Transf (AST/ SGOT) 25, Alanine Aminotransferase (ALT/SGPT) 23, Alkaline Phosphatase 48, Total Protein 5.8, Albumin 3.7 Discussion & Recommendations Discussion Follow up with Dr Brown in one to two weeks. Follow up appt.: Dr Brown Dicharge Diet: Cardiac Diet Activity as Tolerated: Yes Home Medications Reviewed patient Home Medication Reconciliation performed by pharmacy medication reconciliations fire protection equipment technician and/or nursing. Patients Allergies have been reviewed. Discharge Home Medications: Reviewed and agree with Discharge Medication list on patient's Discharge Instruction sheet Condition at discharge stable Instructions to patient/family Dr Brown in one week Doron BROWN MD Mar 02, 2018 11:06 am
[2018-03-02] MEDS ORDERED: TROUGH ORDER-PHARMACY XX NR (20:00)
== END 2018-03-02 10:40 | disposition home or self-care (01) ==
LOC: CATH 07:57 → ICU 12:06 → CATH 03-02 10:40
PROVIDERS: ATTEND Internal Medicine Interventional Cardiology
DX: I49.5 Sick sinus syndrome (principal); E78.5 Hyperlipidemia, unspecified; Z87.891 Personal history of nicotine dependence; Z79.82 Long term (current) use of aspirin
CPT/HCPCS: 33208; 36415; 71045; 80053; 85027; 85610; 85730; 87081; 93005

== ENCOUNTER → 2019-01-03 | Day surgery (SDC) | payer MEDICARE, OTHER ==
[~2019-01-03] VITALS: Ht 176.5 cm; Wt 78.9 kg
[~2019-01-03] MED LIST changes: +ATOR10TA66 PO; +CHOL10007 PO; +CLIN300C11 PO; +CLOP75TA28 PO; +CYAN10006 PO; +DICL75TA2 PO; +LIDOCAINE 1% INJ 20 ML 20 ML VIAL ONE; +METO-370 PO; +METO-387 PO; +MULT-35 PO; +PANT40VI14 IV; +VITA1TAB17 PO
[2019-01-03 12:23] VITALS: BP 133/79
--- NOTE | 2019-01-03 13:18 | NUR ---
loop aborted, spoke with Leonard Sal from [employer] and interrogation reviewed. ambulatory on dc.
== END | disposition home or self-care (01) ==
LOC: CATH 11:36
PROVIDERS: ATTEND Internal Medicine Cardiovascular Disease
DX: R00.2 Palpitations (principal); Z53.9 Procedure and treatment not carried out, unspecified reason

== ENCOUNTER → 2019-02-08 | Outpatient (CLI) | payer MEDICARE, OTHER ==
[~2019-02-08] MED LIST changes: -LIDOCAINE 1% INJ 20 ML 20 ML VIAL ONE
--- NOTE | 2019-02-08 14:52 | Diagnostic Imaging Report ---
PROCEDURE: US carotid duplex, bilateral. TECHNIQUE: Multiple real-time grayscale images were obtained over the carotid arteries in various projections, bilaterally. Additional spectral analysis and color Doppler duplex images were also obtained. INDICATION: Cerebrovascular disease. FINDINGS: Mild plaquing in the proximal internal carotid arteries bilaterally is noted. Velocities appear to be normal bilaterally. No velocity elevation or stenosis is seen. Both vertebral arteries show antegrade flow. IMPRESSION: No evidence of a hemodynamically significant stenosis. Parameters based on the consensus panel Wade-Scale and Doppler ultrasound criteria published May 2003, Radiology, Volume 229. DOPPLER (peak systolic velocity M/S Right Left CCA .85 .80 ICA Proximal .75 .70 ICA Mid .73 .53 ICA Distal .95 .87 RATIO 1.1 1.6 ECA .78 .82 VERT .49 .59 Dictated by: Dictated on workstation # [id number]
== END ==
LOC: RAD 10:21
PROVIDERS: ATTEND Family Medicine
DX: I67.89 Other cerebrovascular disease (principal); E78.2 Mixed hyperlipidemia
CPT/HCPCS: 93880

== ENCOUNTER → 2019-09-20 | Outpatient (CLI) | payer MEDICARE, OTHER ==
[~2019-09-20] MED LIST changes: +CYAN-41 PO; -CYAN10006 PO; -DICL100T PO; -METO-370 PO; -METO-387 PO; +METO50TA7 PO; +MTP25TSR PO; +NF-DICLOTA PO
--- NOTE | 2019-09-20 16:15 | Diagnostic Imaging Report ---
INDICATION: Left wrist pain. Right wrist radiographs done for comparison. COMPARISON: None available. TECHNIQUE: Four views of each wrist were obtained for a total of eight views. FINDINGS: Left wrist: No acute or healing fracture. Large lucent cystic lesion in the distal pole of the scaphoid has not changed since the left hand radiograph of 09/19/2017. Severe degenerative changes at the STT articulation are stable. 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 Cystic change within the triquetrum are similar in appearance as well. Soft tissue surgical clips at the radial aspect are unchanged. Right wrist: No acute or healing fracture. No cystic change within the proximal carpal row. Moderate degenerative changes at the thumb CMC. There are also moderate degenerative changes at the STT. IMPRESSION: 1. Advanced degenerative changes of the left thumb base. 2. Multifocal cystic change within the proximal carpal row on the left is similar to hand radiograph of 09/27/2017, and is most likely degenerative in nature. Dictated by: Dictated on workstation # [id number]
== END ==
LOC: RAD 10:12
PROVIDERS: ATTEND Plastic Surgery
DX: M19.042 Primary osteoarthritis, left hand (principal); M85.642 Other cyst of bone, left hand

== ENCOUNTER → 2020-03-16 | Outpatient (CLI) | payer MEDICARE, OTHER | LOC: CARD 08:23 | PROVIDERS: ATTEND Internal Medicine Interventional Cardiology | DX: I25.10 Atherosclerotic heart disease of native coronary artery without angina pectoris (principal); I34.0 Nonrheumatic mitral (valve) insufficiency; E78.5 Hyperlipidemia, unspecified; I45.10 Unspecified right bundle-branch block; I49.5 Sick sinus syndrome; Z95.0 Presence of cardiac pacemaker | CPT/HCPCS: 93306 ==

== ENCOUNTER → 2021-01-05 | Outpatient (CLI) | payer MEDICARE, OTHER ==
[~2021-01-05] MED LIST changes: -CLIN300C11 PO; +CLIN300C12 PO
--- NOTE | 2021-01-05 13:30 | Diagnostic Imaging Report ---
CLINICAL HISTORY: Neck pain. History of melanoma. COMPARISON: None. TECHNIQUE: Three views of the cervical spine. FINDINGS: There is no acute fracture or dislocation of the cervical spine. There is left convexity curvature of the cervical spine. Views of the dens demonstrate no evidence of fracture. Advanced degenerative changes are seen in the cervical spine with disc height loss, marginal osteophytes, and uncovertebral arthropathy. These appear most prominent at the C3-C4 and C5-C6 levels. The soft tissues of the neck are unremarkable. The included lung apices are clear. IMPRESSION: 1. No acute fracture or dislocation in the cervical spine. 2. Advanced degenerative changes in the cervical spine, most prominent at the C3-C4 and C4-C5 levels. Dictated by: Dictated on workstation # [id number]
--- NOTE | 2021-01-05 16:48 | Diagnostic Imaging Report ---
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 The degenerative changes do seem to have progressed somewhat since the prior chest exam of 07/04/2017. There is no fracture or acute bony abnormality identified. There is no sign of a paraspinal mass. In the interval since the prior study a left-sided pacemaker has been inserted. IMPRESSION: 1. There is no evidence for an acute bony abnormality. 2. The degenerative disc and bony disease involving the lower thoracic spine does seem to have progressed slightly since the prior exam. 3. There has been interval insertion of a left-sided pacemaker. Dictated by: Dictated on workstation # [id number]
--- NOTE | 2021-01-05 16:52 | Diagnostic Imaging Report ---
EXAMINATION: Right shoulder at 1233 PM INDICATION: Shoulder pain 3 views were obtained. There are no prior studies available for comparison. There is no fracture, dislocation or acute bony abnormality identified. There is mild degenerative disease of the glenohumeral joint and at least moderate degenerative disease of the acromioclavicular joint. The soft tissues are unremarkable. IMPRESSION: There is no evidence for an acute bony abnormality. Dictated by: Dictated on workstation # [id number]
== END ==
LOC: RAD 12:02
PROVIDERS: ATTEND Family Medicine
DX: M47.812 Spondylosis without myelopathy or radiculopathy, cervical region (principal); M51.34 Other intervertebral disc degeneration, thoracic region
CPT/HCPCS: 72040; 72072; 73030

== ENCOUNTER → 2021-01-26 | Outpatient (CLI) | payer MEDICARE, OTHER ==
[~2021-01-26] MED LIST changes: +CATHETER FLUSH 10 ML SYR IV PRN; +REGADENOSON 0.4 MG/5 ML SYR (LEXISCAN) IV ONE
[2021-01-26 09:28] VITALS: BP 146/87
--- NOTE | 2021-01-26 22:32 | STRESS TEST ---
DATE OF SERVICE: 01/26/2021 RESTING AND POST REGADENOSON TECHNETIUM-99M TETROFOSMIN SPECT CT IMAGING ORDERING PHYSICIAN: Dr. Hammond. PRIMARY PHYSICIAN: Dr. Kendrick. CLINICAL DIAGNOSIS: Coronary artery disease. Baseline images were carried out after injection of 10.93 mCi of technetium-99m Tetrofosmin. This was followed by 0.4 mg regadenoson and 30.1 mCi of technetium-99m Tetrofosmin for stress imaging. The electrocardiogram showed sinus rhythm at baseline. It did not change significantly with regadenoson infusion. Nonspecific T-wave inversion is seen. There is right bundle-branch block. The patient noted some shortness of breath and mild nausea following regadenoson infusion, which resolved in a few minutes. Review of images at rest and following stress does not indicate any significant perfusion defects consistent with significant myocardial ischemia or infarction. Gated images show normal global left ventricular systolic function with normal regional wall motion. Left ventricular ejection fraction is calculated to be 61%. Left ventricular end diastolic volume is 59 mL. TID is absent (0.95). CONCLUSIONS: 1. No evidence of any significant myocardial ischemia or infarction on this study. 2. Normal regional wall motion. 3. Normal global left ventricular systolic function with a calculated ejection fraction of 61%. Job ID: [id number] DocumentID: [id number] Dictated Date: 01/26/2021 20:22:34 Assembly Cleaner Date: 01/26/2021 22:30:46 Dictated By: BHARATI HAMMOND MD, MA, FACP, FACC,
== END ==
LOC: CARD 08:30
PROVIDERS: ATTEND Internal Medicine Cardiovascular Disease
DX: I25.10 Atherosclerotic heart disease of native coronary artery without angina pectoris (principal)
CPT/HCPCS: 78452; 93017; A9502

== ENCOUNTER 2021-03-05 09:38 | Outpatient (CLI) | payer MEDICARE, OTHER ==
[~2021-03-05 09:38] MED LIST changes: -CATHETER FLUSH 10 ML SYR IV PRN; -REGADENOSON 0.4 MG/5 ML SYR (LEXISCAN) IV ONE
== END 2021-03-05 10:00 ==
LOC: SLEEP 09:38
PROVIDERS: ATTEND Nurse Practitioner
DX: G47.33 Obstructive sleep apnea (adult) (pediatric) (principal); G47.10 Hypersomnia, unspecified; Z86.79 Personal history of other diseases of the circulatory system
CPT/HCPCS: G0399

== ENCOUNTER 2021-04-15 13:00 | Outpatient (RCR) | payer MEDICARE, OTHER | END 2021-04-19 | disposition home or self-care (01) | PROVIDERS: ATTEND Family Medicine | DX: M54.2 Cervicalgia (principal); M54.6 Pain in thoracic spine; M25.511 Pain in right shoulder; Z95.0 Presence of cardiac pacemaker ==

== ENCOUNTER → 2021-04-21 | Outpatient (CLI) | payer MEDICARE, OTHER | LOC: LABNPT 08:21 | PROVIDERS: ATTEND Otolaryngology Otolaryngology/Facial Plastic Surgery | DX: G47.33 Obstructive sleep apnea (adult) (pediatric) (principal); Z20.822 Contact with and (suspected) exposure to COVID-19 | CPT/HCPCS: 87635 ==

== ENCOUNTER 2021-04-23 19:32 | Outpatient (CLI) | payer MEDICARE, OTHER | END 2021-04-24 06:35 | disposition home or self-care (01) | LOC: SLEEP 19:32 | PROVIDERS: ATTEND Nurse Practitioner | DX: G47.33 Obstructive sleep apnea (adult) (pediatric) (principal); G47.31 Primary central sleep apnea | CPT/HCPCS: 95811 ==

== ENCOUNTER → 2021-07-15 | Outpatient (CLI) | payer MEDICARE, OTHER ==
[~2021-07-15] MED LIST changes: +CLIN-144 PO; -CLIN300C12 PO
== END ==
LOC: LABNPT 08:29
PROVIDERS: ATTEND Family Medicine
DX: Z20.822 Contact with and (suspected) exposure to COVID-19 (principal)
CPT/HCPCS: 87636

== ENCOUNTER → 2021-09-15 | Outpatient (CLI) | payer MEDICARE, OTHER ==
--- NOTE | 2021-09-15 15:22 | Diagnostic Imaging Report ---
PROCEDURE: US Thyroid. TECHNIQUE: Multiple Real-time grayscale images were obtained of the thyroid in various projections. INDICATION: Thyroid nodule. COMPARISON: None available. FINDINGS: Right thyroid lobe: The right thyroid lobe measures 4.6 x 1.4 x 1.7 cm. It demonstrates mild heterogeneous echogenicity without discrete nodule. Normal vascularity is present throughout the right thyroid lobe. Isthmus: The thyroid isthmus measures 0.3 cm and is without nodule. Left thyroid lobe: The left thyroid lobe measures 4.9 x 2.1 x 2.2 cm. There is a solid, isoechoic nodule with circumscribed margins that is wider than tall measuring 1.7 x 1.6 x 2.2 cm. IMPRESSION: Solitary left thyroid nodule is mildly suspicious. At its current size, recommendation is for a followup thyroid ultrasound in 12 months to assess stability. ACR TI-RADS: TR3 . TI-RADS Recommendations:TR3 - Mildly Suspicious. FNA if > 2.5 cm. Follow if > 1.5 cm at 1, 3, 5 years. Dictated by: Dictated on workstation # [id number]
== END ==
LOC: RAD 11:03
PROVIDERS: ATTEND Family Medicine
DX: E04.1 Nontoxic single thyroid nodule (principal)
CPT/HCPCS: 76536

== ENCOUNTER 2021-11-02 10:00 | Day surgery (SDC) | payer MEDICARE, OTHER ==
[~2021-11-02] VITALS: Ht 177.8 cm; Wt 85.6 kg
[2021-11-02] VITALS (10 sets, daily range): BP systolic 116–134; BP diastolic 71–89
[2021-11-02 08:39] LABS: HEMATOCRIT 43 % (40-54); HEMOGLOBIN 14.3 g/dL (13.3-17.7); MEAN CORPUSCULAR HEMOGLOBIN 33 pg (25-34); MEAN CORPUSCULAR HGB CONC 34 g/dL (32-36); MEAN CORPUSCULAR VOLUME 97 fL (80-99); MEAN PLATELET VOLUME 9.3 fL (9.0-12.2); PLATELET COUNT 233 10^3/uL (130-400); WHITE BLOOD COUNT 6.4 10^3/uL (4.3-11.0)
[2021-11-02 08:52] LABS: POTASSIUM 4.3 MMOL/L (3.6-5.0)
[2021-11-02 08:53] LABS: ALBUMIN 4.1 GM/DL (3.2-4.5)
[2021-11-02 08:54] LABS: CALCIUM 9.1 MG/DL (8.5-10.1); PROTHROMBIN TIME PATIENT 13.3 SEC (12.2-14.7)
[2021-11-02 08:55] LABS: TOTAL PROTEIN 6.9 GM/DL (6.4-8.2)
[2021-11-02 08:57] LABS: BILIRUBIN,TOTAL 0.4 MG/DL (0.1-1.0)
[2021-11-02 08:59] LABS: CREATININE SERUM 0.82 MG/DL (0.60-1.30)
[~2021-11-02 10:00] MED LIST changes: +APIX5TAB PO; +ASPI-999 PO; +HEParin (CATH LAB) 2,000 ML IV ONE; +LIDOCAINE 1% INJ 50 ML (XYLOCAINE) VIAL ONE; +MIDAZOLAM 5 MG/5 ML (VERSED) VIAL ONE; +MULT-1136 PO; +NF-VITD400 PO; +NS IV 1000 ML 1,000 ML IV SCH; +NS IV 1000 ML 1,000 ML ONE; +POLY1DRO OU; +VITA-189 PO; +diphenhydrAMINE 50 MG/ML INJ (BENADRYL) ONE; +fentaNYL INJ 100 MCG/2 ML AMP ONE; +methylPREDNISolone 125 MG (Solu-MEDROL) VIAL ONE
--- NOTE | 2021-11-02 10:22 | Cardiac Procedure Note-CS/ASA ---
Pre-Procedure Note Pre-Op Procedure Note H&P Reviewed The H&P was reviewed, patient examined and no changes noted. Date H&P Reviewed: Nov 02, 2021 Time H&P Reviewed: 09:45 Conscious Sedation Pre-Proced Time 09:45 ASA Score 3 For ASA 3 and 4: Consider anesthesia and medical clearance. Also, for patients with a history of failed moderate sedation consider anesthesia. Airway Lungs Heart ASA score ASA 1: a normal healthy patient ASA 2: a patient with a mild systemic disease (mid diabetes, controlled hypertension, obesity ASA 3: a patient with a severe systemic disease that limits activity (angina, COPD, prior Myocardial infarction) ASA 4: a patient with an incapacitating disease that is a constant threat to life (CHF, renal failure) ASA 5: a moribund patient not expected to survive 24 hrs. (ruptured aneurysm) ASA 6: a declared brain- patient whose organs are being harvested. For emergent operations, add the letter E after the classification Mallampati Classification Grade 2 Sedation Plan Analgesia, Amnesia, Plan communicated to team members, Discussed options with patient/fam, Discussed risks with patient/fam The patient is an appropriate candidate to undergo the planned procedure, sedation, and anesthesia. The patient immediately re-assessed prior to indication. BHARATI BURNETTE MD FACP FAC CCDS Nov 02, 2021 10:22
--- NOTE | 2021-11-02 10:24 | Discharge Inst-Cardiology ---
Discharge Inst-Cardiac Discharge Medications Continued Medications: Apixaban (Eliquis) 5 Mg Tablet 5 MG PO BID, TAB Aspirin (Aspirin) 81 Mg Tab.chew 81 MG PO DAILY, TAB Atorvastatin Calcium (Atorvastatin Calcium) 10 Mg Tablet 10 MG PO HS, TAB Metoprolol Succinate (Metoprolol Succinate) 50 Mg Tab.er.24h 50 MG PO DAILY, TAB Multivitamin (Multivitamin) 1 Each Tablet 1 EACH PO DAILY, TAB Polyvinyl Alcohol/Povidone/Pf (Refresh Classic Eye Drops) 1 Each Droperette 1 DROP OU HS PRN for DRY EYES, DROP Vitamin B Complex (B Complex) 1 Each Tablet 1 EACH PO DAILY, TAB Vitamin D (Vitamin D3) 10 Mcg Tablet 400 MCG PO MON,WED,MON, TAB BHARATI BURNETTE MD FACP FAC CCDS Nov 02, 2021 10:24
--- NOTE | 2021-11-02 10:25 | Discharge Inst-Post CATH ---
Discharge Inst-CATH/EP Post Cardiac Cath/EP D/C Inst Follow Up/Plan F/u with Dr Hammond in 2 weeks ACTIVITY * Go Home directly and rest. * Limit activity of the leg (or wrist if it was used) for 7 days including aerobics, swimming, jogging, bicycling, etc. * Restrict stair-climbing for 7 days if possible, if not, climb up with your n on-cath leg, then bring together on the same step. * Avoid lifting, pushing, pulling or excessive movement of the affected ex tremity for 7 days. * Customary sexual activity may be resumed after 2 days-use caution not to use a position that strains or causes pain to the affected extremity. * No driving for 24 hours. * NO SMOKING. * Avoid straining for bowel movements for 7 days. * Gentle walking on level ground is allowed. * Returning to work will depend on the type of procedure and the results. Your doctor will discuss this with you. CALL YOUR DOCTOR FOR ANY OF THE FOLLOWING: *If bleeding from the puncture site occurs- Apply gentle pressure to site with clean cloth and call your doctor or EMS. * If a knot or lump forms under the skin, increases in size, or causes pain. * If bruising appears to be worsening or moving further down your leg instead of disappearing. * Temperature above 101 F. CARE OF YOUR GROIN INCISION; * Bruising or purple discoloration of the skin near the puncture site is common. * You may shower only, no bathtub bathing for 5 days. Be careful to avoid slipping as your leg may feel stiff. * If a closure device was used on your femoral artery, please see the attached guide regarding care of the device and your leg. * Leave dressing on FOR 24 hours. CARE OF YOUR WRIST INCISION; * Bruising or purple discoloration of the skin near the puncture site is common. * You may shower. * DO NOT submerge wrist. * Leave dressing on FOR 24 hours. BHARATI HAMMOND MD FACP FAC CCDS Nov 02, 2021 10:25
[2021-11-02] MEDS ORDERED: PATIENT MAY USE OWN MEDS, ALL PO SCH (10:30)
[2021-11-02] MEDS ORDERED: NS IV 1000 ML 1,000 ML IV SCH (10:30)
--- NOTE | 2021-11-02 10:45 | CARDIAC CATHETERIZATION ---
DATE OF SERVICE: 11/02/2021 CARDIAC CATHETERIZATION REPORT INDICATION FOR PROCEDURE: The patient is an 80-year-old gentleman with a known history of coronary artery disease. He has lately been having chest discomfort that is suggestive of previous angina. Cardiac catheterization was carried out today after having obtained an informed consent. DESCRIPTION OF PROCEDURE: He was brought to the cardiac catheterization laboratory in a fasting state. Right groin was prepared and draped in the usual sterile fashion. Lidocaine 1% was used as local anesthesia. Modified Seldinger technique used to advance a 5-Iranian sheath in the right femoral artery. We used a 5-Iranian JL4 catheter for left coronary angiography and 5-Iranian JR4 catheter for right coronary angiography. We used a 5-Iranian pigtail catheter to carry out left heart catheterization and left ventricular angiography. At the end of the procedure, we used Mynx to achieve hemostasis following sheath removal. He tolerated the procedure well. HEMODYNAMICS: Left ventricular end-diastolic pressure following coronary angiography was 16 mmHg. There was no significant pressure gradient on pullback across the aortic valve. CORONARY ANGIOGRAPHY: Some coronary calcification is seen. Left main coronary artery is free of significant disease. Left anterior descending artery has a widely patent stented segment in the proximal portion. There is no significant in-stent restenosis. The left circumflex and the left anterior descending arteries have mild plaques. The right coronary artery is dominant. It has mild to moderate mid vessel and distal disease. VENTRICULAR ANGIOGRAPHY: Left ventricular angiography was carried out in the right anterior oblique projection. Global left ventricular systolic function is well preserved. Left ventricular ejection fraction approximately 50% to 55%. CONCLUSIONS: 1. Mild coronary artery disease. 2. Widely patent stent in the proximal left anterior descending. These are known to be overlapping Alpine Xience 3.5 x 12 and 3.5 x 28 mm stents. 3. Mildly elevated left ventricular end-diastolic pressure. 4. Well preserved global left ventricular systolic function with an ejection fraction of 50% to 55%. DISCUSSION AND RECOMMENDATIONS: Based on the results of the study, it appears appropriate to continue a conservative approach. Risk factor modification has been reviewed. Current regimen is being continued. Outpatient followup is advised. Job ID: [id number] DocumentID: [id number] Dictated Date: 11/02/2021 10:31:24 Survey Worker Date: 11/02/2021 10:44:37 Dictated By: BHARATI BURNETTE MD, MA, FACP, FACC,
== END 2021-11-02 13:45 | disposition home or self-care (01) ==
LOC: CATH 10:00 → SDC 10:43 → CATH 13:45
PROVIDERS: ATTEND Internal Medicine Cardiovascular Disease
DX: I25.10 Atherosclerotic heart disease of native coronary artery without angina pectoris (principal); I49.5 Sick sinus syndrome; I48.0 Paroxysmal atrial fibrillation; I44.2 Atrioventricular block, complete; I65.23 Occlusion and stenosis of bilateral carotid arteries; I45.10 Unspecified right bundle-branch block; E04.1 Nontoxic single thyroid nodule; E78.2 Mixed hyperlipidemia; I34.0 Nonrheumatic mitral (valve) insufficiency; Z79.82 Long term (current) use of aspirin; Z79.01 Long term (current) use of anticoagulants; Z79.899 Other long term (current) drug therapy; Z87.891 Personal history of nicotine dependence; Z95.0 Presence of cardiac pacemaker
CPT/HCPCS: 80053; 80061; 85027; 85610; 85730; 87081; 93005; 93458; C1760; C1894; 36415

== ENCOUNTER → 2022-03-22 | Outpatient (CLI) | payer MEDICARE, OTHER ==
[~2022-03-22] MED LIST changes: -HEParin (CATH LAB) 2,000 ML IV ONE; -LIDOCAINE 1% INJ 50 ML (XYLOCAINE) VIAL ONE; -MIDAZOLAM 5 MG/5 ML (VERSED) VIAL ONE; -NS IV 1000 ML 1,000 ML IV SCH; -NS IV 1000 ML 1,000 ML ONE; -diphenhydrAMINE 50 MG/ML INJ (BENADRYL) ONE; -fentaNYL INJ 100 MCG/2 ML AMP ONE; -methylPREDNISolone 125 MG (Solu-MEDROL) VIAL ONE
--- NOTE | 2022-03-22 17:39 | Diagnostic Imaging Report ---
PROCEDURE: US Thyroid. TECHNIQUE: Multiple real-time grayscale images were obtained of the thyroid in various projections. INDICATION: Followup thyroid nodule COMPARISON: 09/15/2021 FINDINGS: Right thyroid lobe: Size (cm): 4.7 x 1.3 x 1.5 Echotexture: Normal Vascularity: Normal Nodules: None Isthmus: Size (cm): 0.2 Nodules: None Left thyroid lobe: Size (cm): 4.6 x 2.3 x 2.1 Echotexture: Normal Vascularity: Normal Nodules: Isoechoic solid nodule in the left mid thyroid measures up to 2.1 cm and is unchanged since the prior exam. There are punctate echogenic foci. Impression: 1. TI-RADS 4 nodule in the left thyroid is stable in size, and qualifies for FNA. Dictated by: Dictated on workstation # [id number]
== END ==
LOC: RAD 10:41
PROVIDERS: ATTEND Family Medicine
DX: E04.1 Nontoxic single thyroid nodule (principal)
CPT/HCPCS: 76536

== ENCOUNTER → 2022-09-30 | Outpatient (CLI) | payer MEDICARE, OTHER ==
--- NOTE | 2022-09-30 11:29 | Diagnostic Imaging Report ---
PROCEDURE: US Thyroid. TECHNIQUE: Multiple real-time grayscale images were obtained of the thyroid in various projections. INDICATION: Thyroid nodule, follow-up. COMPARISON: Correlation is made with prior study from 03/22/2022. FINDINGS: Right lobe of the thyroid measures 4.9 x 1.6 x 1.4 cm and the left lobe measures 4.8 x 2.1 x 2.0 cm. Isthmus is 3 mm in thickness. Right lobe shows fairly homogeneous echotexture and is without evidence of discrete mass. The solid dominant nodule in the left lobe of the thyroid is again noted measuring 2.1 x 1.6 x 1.5 cm, unchanged from prior exam. No new mass is detected. IMPRESSION: Stable left lobe thyroid nodule when compared with examination from 03/22/2022. Dictated by: Dictated on workstation # [id number]
== END ==
LOC: RAD 10:18
PROVIDERS: ATTEND Family Medicine
DX: E04.1 Nontoxic single thyroid nodule (principal)
CPT/HCPCS: 76536

== ENCOUNTER → 2022-12-28 | Outpatient (CLI) | payer MEDICARE, OTHER | LOC: CARD 08:43 | PROVIDERS: ATTEND Internal Medicine Cardiovascular Disease | DX: I34.0 Nonrheumatic mitral (valve) insufficiency (principal); I27.20 Pulmonary hypertension, unspecified; I51.7 Cardiomegaly | CPT/HCPCS: 93306 ==